=== PATIENT | female | born 1980 | race Asian ===

== ENCOUNTER 2025-02-13 09:37 | Outpatient (AMB) | payer MEDICAID, SELFPAY ==
--- NOTE | 2025-02-13 09:39 | GSCOFFNT_ITS ---
Vital Signs - [facility] 02/13/25 09:46 Height 1.65 m Height Method Measured Weight 76.884 kg Weight Measurement Method Standing Scale BMI 28.2 BP 122/83 Blood Pressure Source Automatic Cuff Blood Pressure Location Left Upper Arm Position Sitting Respiration 16 Pulse 91 Pulse Source Monitor Temp 97.8 F Temp Source Temporal Artery Scan Pulse Oximetry (%) 97 Oxygen Delivery Method Room Air Med/Allergies Allergies & Medications Allergies No Known Allergies Allergy (Verified 02/13/25 09:47) Medication Reconciliation vitamins-iron fumarate 27 mg iron-folic acid 0.8 mg tablet ( Vitamin) 1 tab PO QDAY 06/06/19 [History Confirmed 02/13/25] fluticasone propionate 50 mcg/actuation nasal spray,suspension (Flonase Allergy Relief) 2 spray intranasal QDAY #9.9 grams 06/24/19 [Rx Confirmed 02/13/25] hydrocodone 5 mg-acetaminophen 325 mg tablet ([place]) 1 tab PO Q6H PRN pain #20 tabs 07/02/19 [Rx Confirmed 02/13/25] metformin 500 mg tablet 500 mg PO BID diabetes #60 tabs 07/02/19 [Rx Confirmed 02/13/25] meloxicam 7.5 mg tablet 7.5 mg PO QDAY #10 tabs 12/19/21 [Rx Confirmed 02/13/25] MA Intake Visit Data Collection New Patient or Established: New Patient (never been to [facility]) Seen by Clinical Staff ONLY (RN/MA): No Reason for Visit:: REFERRAL COLONOSCOPY Pain Present Currently: No Pain Scale Used: [place]/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 PCP or OBGYN visit in last 3 months: Yes Hx Now: No Do You Feel Safe at Home: Yes Authorities Contacted: N/A Smoking Status Smoking Status: Never smoker Immunization / Flu Flu Vaccine in the Last 12 Months: Yes Flu Vaccine Exclusion Criteria: Already Received Past Medical History Past Medical History NEUROLOGIC: Negative Neurological Disorders or Seizures CARDIAC: Positive Hypercholesterolemia and Hypertension; Negative Cardiac Disorders or Congestive Heart Failure RESPIRATORY: Negative Chronic Obstructive Pulmonary Disease (COPD) GASTROINTESTINAL: Negative Gastrointestinal Disorders GENITOURINARY: Negative Genitourinary Disorders or Renal Disease REPRODUCTIVE: Positive Previous Pregnancies; Negative Endometriosis, Pelvic Inflammatory Disease or Uterine Prolapse ENDOCRINE: Positive Endocrine Disorders and Diabetes Mellitus Type 2; Negative Diabetes Mellitus Type 1 HEMATOLOGIC: Negative Blood Disorders OTHER HISTORY: Positive Hospitalization; Negative Autoimmune Disease, Falls, Blood Transfusions, Blood Transfusion Reaction or Anesthesia Reactions Family History FAMILY HISTORY: Negative Family Psychiatric Problems, Family Respiratory Disorders, Family Cardiac Disorders, Family Gastrointestinal Problems, Family Cancer, Family Surgery or Family Anesthesia Reaction Surgical History SURGICAL: Negative Section Social History SMOKING STATUS: Smoking status: Never smoker ALCOHOL: Alcohol Intake: Never HOUSING: Housing: House LIVES WITH: Lives With: Children and Family HPI HPI Narrative HISTORY OF PRESENT ILLNESS I, Yara Chacon, have obtained verbal consent from the patient, to be recorded during this encounter which may include, but not limited to, medical history, examination, treatment plans, and relevant health information.? Patient was informed that recording will be read and reviewed by myself before inclusion in the medical chart. The patient is 44F who was referred for colonoscopy. Pt requested first a [employer] miner blasting which I obtained via phone, however she then requested [place] which was not available. We proceeded with a [employer] miner blasting though pt stated she understands well in [place], her main complaint is difficulty communicating in [place] This will be her first colonoscopy. She reports no presence of blood in her stool but has been experiencing difficulty with bowel movements for the past 8 months pr sp. Her bowel habits vary, sometimes having 2 to 3 bowel movements in a day. Occasionally, she notices thin, pencil-like stools. She has not observed any changes in her weight or appetite, except when she started taking Ozempic, which made her feel less hungry. She has no known drug allergies and no family history of colon or rectal cancer. She has a history of hemorrhoids since the age of 23, which occasionally cause itching but are otherwise asymptomatic. PMH: DMII, HTN, HLD PSHx: Csection Meds: Ozempic, atorvastatin, losartan, januvia, metformin Allergies: NKDA Family hx: Negative for colon or rectal CA ROS Review of Systems Systems Reviewed: All systems reviewed, normal except as documented Objective/Exam General General Appearance: alert, cooperative and well groomed Resp Respiratory exam: Absent respiratory distress Assessment & Plan Diagnosis / Problem List (1) Encounter for diagnostic colonoscopy due to change in bowel habits: Status: Acute Assessment & Plan: I explained prep and sedation for colonoscopy including that she will need to hold the Ozempic dose before the procedure, stop jardiance 3 days prior and stop metformin the day before. I explained benefits/risks including bleeding, perforation requiring emergency surgery as well as the possiblity of needing to abort prematurely for safety. All questions were answered and pt is agreeable to proceeding (2) Hemorrhoids: Status: Acute Assessment & Plan: Pt reports having hemorrhoids for almost 23 years, which sometimes cause itching but are generally manageable. The possibility of using lidocaine for pain management during the bowel preparation phase was discussed. Hemorrhoid surgery will be considered after the colonoscopy if necessary. Office Procedures GNS Level of Care Nursing/Assessment Patient Status: Initial/New Patient Nursing Assessment/Reassesment: Medication Reconciliation, Update PMH in EMR and Vital Signs Coordination of Care: Complex Care and Chronic Disease 1-5, Education Complex Pt/Fam, Consent,records obtained, informed consent, Results/Orders obtained and Staff clarify orders New Patient Charge New Patient Point Assignment: [id number] New Patient Point Charge: CARD DEALER Level 3 ([id number]) Patient Portal Questionaires Social History Living Situation History Housing: House Tobacco History Smoking Status: Never smoker Alcohol History Alcohol Intake: Never Domestic Abuse History Do You Feel Safe at Home: Yes Review of Systems Report any current symptoms Only answer those that you have currently: Past Medical History Past Medical History Have you ever been diagnosed with any of the following: Neurological Problems Seizures: No Cardiology Problems Hypercholesterolemia: Yes Congestive Heart Failure: No Hypertension: Yes Respiratory Problems Chronic Obstructive Pulmonary Disease (COPD): No Genital/Urinary Problems Renal Disease: No Reproductive Problems Endometriosis: No Pelvic Inflammatory Disease: No Previous Pregnancies: Yes Uterine Prolapse: No Endocrine Problems Diabetes Mellitus Type 1: No Diabetes Mellitus Type 2: Yes Other Problems Hospitalization: Yes Autoimmune Disease: No Falls: No Blood Transfusions: No Blood Transfusion Reaction: No Anesthesia Reactions: No
[2025-02-13 09:46] VITALS: BP 122/83; PULSE 91; RESP 16; TEMP 36.6; O2SAT 97; BMI 28.2
== END 2025-02-13 10:37 | disposition home or self-care (01) ==
LOC: HODSRG 09:37
PROVIDERS: Supervising Provider Surgery; Visit Provider Surgery
DX: R19.4 Change in bowel habit (principal); K64.9 Unspecified hemorrhoids; I10 Essential (primary) hypertension; E11.8 Type 2 diabetes mellitus with unspecified complications; Z79.84 Long term (current) use of oral hypoglycemic drugs
CPT/HCPCS: 99203; G0463

== ENCOUNTER 2025-02-28 08:40 | Day surgery (SDC) | payer MEDICAID, SELFPAY ==
[2025-02-27 17:09] LABS: HCG Qualitative,Urine Negative
[2025-02-28] VITALS (12 sets, daily range): BP systolic 114–148; BP diastolic 75–96; PULSE 78–90; RESP 12–20; TEMP 36.5–36.8; O2SAT 96–100; BMI 29.0
[2025-02-28] MEDS: RINGERS LACTATED 500 ML 500 ML 20 ML IV (10:45)
[2025-02-28] MEDS: fentaNYL CIT INJ 50 mCg/ML AMP 2ML (ASD USE ONLY) IVP (10:50)
[2025-02-28] MEDS: MIDAZOLAM INJ 1 MG/ML VIAL 2 ML (ASD USE ONLY) 2 MG IVP (10:50)
== END 2025-02-28 11:55 | disposition home or self-care (01) ==
PROVIDERS: PCP Obstetrics & Gynecology; Referring Provider Surgery; Visit Provider Surgery
PROC: 0DBE8ZX Excision of Large Intestine, Via Natural or Artificial Opening Endoscopic, Diagnostic (ICD-10-PCS; CPT 45380; principal; 2025-02-28 10:15)
DX: D12.0 Benign neoplasm of cecum (principal); D12.8 Benign neoplasm of rectum
CPT/HCPCS: 45380; 81025; A4649; J1200; J2250; J3010; J7120

== ENCOUNTER 2025-03-17 10:53 | Outpatient (AMB) | payer MEDICAID, SELFPAY ==
--- NOTE | 2025-03-17 11:06 | GSCOFFNT_ITS ---
Vital Signs - [facility] 03/17/25 11:07 Height 1.63 m Height Method Measured Weight 76.856 kg Weight Measurement Method Standing Scale BMI 28.9 BP 133/81 H Blood Pressure Source Automatic Cuff Blood Pressure Location Left Upper Arm Position Sitting Respiration 18 Pulse 97 Pulse Source Monitor Temp 96.7 F L Temp Source Temporal Artery Scan Pulse Oximetry (%) 98 Oxygen Delivery Method Room Air Med/Allergies Allergies & Medications Allergies No Known Allergies Allergy (Verified 03/17/25 11:07) Medication Reconciliation empagliflozin 25 mg tablet (Jardiance) 25 mg PO QDAY 02/28/25 [History Confirmed 03/17/25] losartan 50 mg tablet 50 mg PO QDAY 02/28/25 [History Confirmed 03/17/25] metformin 500 mg tablet 1,000 mg PO BID diabetes 02/28/25 [History Confirmed 03/17/25] rosuvastatin 40 mg tablet 40 mg PO QDAY 02/28/25 [History Confirmed 03/17/25] MA Intake Visit Data Collection New Patient or Established: Established Patient (seen at [facility] within 3 years) Seen by Clinical Staff ONLY (RN/MA): No Reason for Visit:: F/U COLONOSCOPY Pain Present Currently: No Pain Scale Used: [place]/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 PCP or OBGYN visit in last 3 months: Yes Hx Now: No Do You Feel Safe at Home: Yes Authorities Contacted: N/A Smoking Status Smoking Status: Never smoker Immunization / Flu Flu Vaccine in the Last 12 Months: Yes Flu Vaccine Exclusion Criteria: Already Received Past Medical History Past Medical History NEUROLOGIC: Negative Neurological Disorders or Seizures CARDIAC: Positive Hypercholesterolemia and Hypertension; Negative Cardiac Disorders or Congestive Heart Failure RESPIRATORY: Negative Chronic Obstructive Pulmonary Disease (COPD) GASTROINTESTINAL: Negative Gastrointestinal Disorders GENITOURINARY: Negative Genitourinary Disorders or Renal Disease REPRODUCTIVE: Positive Previous Pregnancies; Negative Endometriosis, Pelvic Inflammatory Disease or Uterine Prolapse ENDOCRINE: Positive Endocrine Disorders and Diabetes Mellitus Type 2; Negative Diabetes Mellitus Type 1 HEMATOLOGIC: Negative Blood Disorders OTHER HISTORY: Positive Hospitalization; Negative Autoimmune Disease, Falls, Blood Transfusions, Blood Transfusion Reaction or Anesthesia Reactions Family History FAMILY HISTORY: Negative Family Psychiatric Problems, Family Respiratory Disorders, Family Cardiac Disorders, Family Gastrointestinal Problems, Family Cancer, Family Surgery or Family Anesthesia Reaction Surgical History SURGICAL: Negative Section Social History SMOKING STATUS: Smoking status: Never smoker ALCOHOL: Alcohol Intake: Never HOUSING: Housing: House LIVES WITH: Lives With: Children and Family HPI HPI Narrative 44F here for follow up of colonoscopy performed 02/28/25. Pt reports feeling well overall, and was found to have three <1cm polyps which were all benign colonic tissue, not adenomatous ROS Review of Systems Systems Reviewed: All systems reviewed, normal except as documented Objective/Exam General General Appearance: alert, cooperative and well groomed Resp Respiratory exam: Absent respiratory distress Results Colonoscopy report and pathology reviewed Assessment & Plan Diagnosis / Problem List (1) Encounter for diagnostic colonoscopy due to change in bowel habits: Status: Acute Assessment & Plan: 44F here for follow up of colonoscopy performed 02/28/25 which was negative, due for next screening in 10 years. I advised pt to reach out with any concerns or questions in the meantime Office Procedures GNS Level of Care Nursing/Assessment Patient Status: Established Patient Nursing Assessment/Reassesment: Medication Reconciliation, Update PMH in EMR and Vital Signs Coordination of Care: Complex Care and Chronic Disease 1-5, Education Complex Pt/Fam, Consent,records obtained, informed consent, Results/Orders obtained and Staff clarify orders Established Patient Charge Established Patient Point Assignment: 95 Established Patient Point Charge: EP Level 3 (80-115) Patient Portal Questionaires Social History Living Situation History Housing: House Tobacco History Smoking Status: Never smoker Alcohol History Alcohol Intake: Never Domestic Abuse History Do You Feel Safe at Home: Yes Review of Systems Report any current symptoms Only answer those that you have currently: Past Medical History Past Medical History Have you ever been diagnosed with any of the following: Neurological Problems Seizures: No Cardiology Problems Hypercholesterolemia: Yes Congestive Heart Failure: No Hypertension: Yes Respiratory Problems Chronic Obstructive Pulmonary Disease (COPD): No Genital/Urinary Problems Renal Disease: No Reproductive Problems Endometriosis: No Pelvic Inflammatory Disease: No Previous Pregnancies: Yes Uterine Prolapse: No Endocrine Problems Diabetes Mellitus Type 1: No Diabetes Mellitus Type 2: Yes Other Problems Hospitalization: Yes Autoimmune Disease: No Falls: No Blood Transfusions: No Blood Transfusion Reaction: No Anesthesia Reactions: No
[2025-03-17 11:07] VITALS: BP 133/81; PULSE 97; RESP 18; TEMP 35.9; O2SAT 98; BMI 28.9
== END 2025-03-17 11:29 | disposition home or self-care (01) ==
LOC: HODSRG 10:53
PROVIDERS: Supervising Provider Surgery; Visit Provider Surgery
DX: Z01.818 Encounter for other preprocedural examination (principal); R19.4 Change in bowel habit
CPT/HCPCS: 99213; G0463